=== PATIENT | male | born 1985 | race American Indian/Alaskan Native ===

== ENCOUNTER 2019-01-24 19:52 | Emergency (ER) | payer OTHER ==
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
[2019-01-25 01:34] VITALS: BP 115/83
== END 2019-01-25 01:34 | disposition home or self-care (01) ==
LOC: ED 19:52
DX: S16.1XXA Strain of muscle, fascia and tendon at neck level, initial encounter (principal); M25.511 Pain in right shoulder; Z91.011 Allergy to milk products; V89.2XXA Person injured in unspecified motor-vehicle accident, traffic, initial encounter; Y93.89 Activity, other specified; Y92.488 Other paved roadways as the place of occurrence of the external cause; Y99.8 Other external cause status
CPT/HCPCS: 99282

== ENCOUNTER 2020-07-09 12:28 | Emergency (ER) | payer SELFPAY ==
[2020-07-09 13:36] VITALS: BP 117/84
--- NOTE | 2020-07-09 14:38 | Emergency Department Report ---
ED General Adult HPI - General Chief complaint: Back Pain/Injury Stated complaint: TOOTH PAIN, BACK PAIN Time Seen by Provider: 07/09/20 14:32 Source: patient Mode of arrival: Ambulatory Limitations: No Limitations - History of Present Illness Initial comments: pt is a 34 yo male who presents to the ED with two chief complaints. he states he has had right upper dental pain that began intermittently over the last two months. states that he has had right sided facial swelling that began 4-5 days ago. he states the pain has been increasing. he denies any fever, no n/v/d, SOB, difficulty swallowing. states he has not seen a dentist in approximately 10 years. he states that he also has lower back pain that has been occurring intermittently over time. he states today he exacerbated his back while at work. he states he was on a ladder and reaching to grab something and felt his back lock up. he denies any fall or injury. he denies any LOC, numbness, weakness, or bowel or bladder incontinence. PMHx chronic back issues. no allergies to meds - Related Data Previous Rx's Medication Instructions Recorded Last Taken Type HYDROcodone/APAP 5-325 [[place] 1 each PO Q6HR PRN #14 tablet 04/09/14 Unknown Rx 5/325] Penicillin Vk [Veetids TAB] 500 mg PO QID #40 tablet 04/09/14 Unknown Rx Naproxen [Naprosyn] 500 mg PO TID PRN #20 tablet 01/25/19 Unknown Rx methOCARBAMOL [Robaxin TAB] 500 mg PO BID PRN #15 tablet 01/25/19 Unknown Rx Naproxen [EC-Naproxen] 500 mg PO BID PRN #14 fili. 07/09/20 Unknown Rx Penicillin Vk [Veetids TAB] 500 mg PO QID 7 Days #56 tablet 07/09/20 Unknown Rx methOCARBAMOL [Robaxin TAB] 500 mg PO BID PRN #14 tablet 07/09/20 Unknown Rx Allergies Allergy/AdvReac Type Severity Reaction Status Date / Time milk Allergy Unknown Verified 01/24/19 19:55 ED Review of Systems ROS: Stated complaint: TOOTH PAIN, BACK PAIN Other details as noted in HPI Comment: All other systems reviewed and negative ED Past Medical Hx - Past Medical History Previous Medical History?: No - Surgical History Past Surgical History?: No - Social History Smoking Status: Current Every Day Smoker Substance Use Type: Alcohol - Medications Home Medications: Home Medications Medication Instructions Recorded Confirmed Last Taken Type HYDROcodone/APAP 5-325 [[place] 1 each PO Q6HR PRN #14 tablet 04/09/14 Unknown Rx 5/325] Penicillin Vk [Veetids TAB] 500 mg PO QID #40 tablet 04/09/14 Unknown Rx Naproxen [Naprosyn] 500 mg PO TID PRN #20 tablet 01/25/19 Unknown Rx methOCARBAMOL [Robaxin TAB] 500 mg PO BID PRN #15 tablet 01/25/19 Unknown Rx Naproxen [EC-Naproxen] 500 mg PO BID PRN #14 tablet. 07/09/20 Unknown Rx Penicillin Vk [Veetids TAB] 500 mg PO QID 7 Days #56 tablet 07/09/20 Unknown Rx methOCARBAMOL [Robaxin TAB] 500 mg PO BID PRN #14 tablet 07/09/20 Unknown Rx ED Physical Exam - General Limitations: No Limitations General appearance: alert, in no apparent distress - Head Head exam: Present: atraumatic, normocephalic - Eye Eye exam: Present: normal appearance - ENT ENT exam: Present: normal orophraynx, mucous membranes moist, other (there is missing teeth present to the right upper back molar, there is associated induration and edema of the adjacent gumline, there is right sided facial edema, no erythema of the face, uvula is midline, no uvular edema or deviation, no trismus, no tongue elevation, no muffled voice ) - Neck Neck exam: Present: normal inspection, full ROM. Absent: tenderness - Respiratory Respiratory exam: Present: normal lung sounds bilaterally. Absent: respiratory distress, wheezes, rales, rhonchi, stridor, chest wall tenderness, accessory muscle use, decreased breath sounds, prolonged expiratory - Cardiovascular Cardiovascular Exam: Present: regular rate, normal rhythm, normal heart sounds. Absent: systolic murmur, diastolic murmur, rubs, gallop - Back Exam Back exam: Present: normal inspection, full ROM, paraspinal tenderness (bilateral paraspinal lumbar muscular ttp, no mildine C-spine, T-spine or L- spine ttp, no step offs, no deformities). Absent: vertebral tenderness - Neurological Exam Neurological exam: Present: alert, oriented X3, CN II-XII intact, normal gait. Absent: motor sensory deficit - Psychiatric Psychiatric exam: Present: normal affect, normal mood - Skin Skin exam: Present: warm, dry, intact ED Course Vital Signs 07/09/20 13:34 Temperature 97.9 F Pulse Rate 87 Respiratory 18 Rate Blood Pressure 117/84 [Left] O2 Sat by Pulse 98 Oximetry ED Medical Decision Making - Medical Decision Making pt is a 34 yo male who presents to the ED with two chief complaints. he states he has had right upper dental pain that began intermittently over the last two months. states that he has had right sided facial swelling that began 4-5 days ago. he states the pain has been increasing. he denies any fever, no n/v/d, SOB, difficulty swallowing. states he has not seen a dentist in approximately 10 years. he states that he also has lower back pain that has been occurring intermittently over time. he states today he exacerbated his back while at work. he states he was on a ladder and reaching to grab something and felt his back lock up. he denies any fall or injury. he denies any LOC, numbness, weakness, or bowel or bladder incontinence. PMHx chronic back issues. no allergies to meds VSS on exam: there is missing teeth present to the right upper back molar, there is associated induration and edema of the adjacent gumline, there is right sided facial edema, no erythema of the face, uvula is midline, no uvular edema or deviation, no trismus, no tongue elevation, no muffled voice, bilateral paraspinal lumbar muscular ttp, no mildine C-spine, T-spine or L-spine ttp, no step offs, no deformities, no focal neuro deficit. Examination appears consistent with dental carry and dental abscess. Examination also consistent with lumbar strain. Patient has no red flag warning signs of back pain. He has had no trauma, no unexplained weight loss, no neuro deficits, age is not greater than 50, no fever, no IV drug use, no steroid use, no history of cancer. Patient given prescription for penicillin VK, naproxen, Robaxin. Patient referred to orthopedic/spine, dentist, primary care. Advised patient Please take medication as prescribed. Do not drive or operate heavy machinery or work while taking muscle relaxer Robaxin. May use ice pack, hea ting pad, rest, Epson salt bath. Follow-up with your primary care doctor. Follow-up with a dentist. return to the ED for any new or worsening symptoms. Critical care attestation.: If time is entered above; I have spent that time in minutes in the direct care of this critically ill patient, excluding procedure time. ED Disposition Clinical Impression: Dental caries, Dental abscess Acute lumbar myofascial strain Qualifiers: Encounter type: initial encounter Qualified Code(s): S39.012A - Strain of muscle, fascia and tendon of lower back, initial encounter Disposition: TO HOME OR SELFCARE Is pt being admited?: No Does the pt Need Aspirin: No Condition: Stable Instructions: Muscle Strain (ED), Dental Abscess (ED), Dental Caries (ED) Additional Instructions: Please take medication as prescribed. Do not drive or operate heavy machinery or work while taking muscle relaxer Robaxin. May use ice pack, heating pad, rest, Epson salt bath. Follow-up with your primary care doctor. Follow-up with a dentist. Prescriptions: Naproxen [EC-Naproxen] 500 mg PO BID PRN #14 tablet. PRN Reason: pain methOCARBAMOL [Robaxin TAB] 500 mg PO BID PRN #14 tablet PRN Reason: pain Penicillin Vk [Veetids TAB] 500 mg PO QID 7 Days #56 tablet Referrals: [facility] [Outside] - 3-5 Days [facility] [Outside] - 3-5 Days BEN DONOHUE MD [Staff Physician] - 3-[address] [facility] [Provider Group] - 3-5 Days [facility], [LAB/CONTRACT] - 3-5 Days [facility] [Provider Group] - 3-5 Days NARCISA MONREAL II, MD [Staff Physician] - 3-5 Days Time of Disposition: 14:41 Print Language: KINYARWANDA
== END 2020-07-09 15:06 | disposition home or self-care (01) ==
LOC: ED 12:28
DX: S39.012A Strain of muscle, fascia and tendon of lower back, initial encounter (principal); K04.7 Periapical abscess without sinus; K02.9 Dental caries, unspecified; F17.200 Nicotine dependence, unspecified, uncomplicated; Z79.899 Other long term (current) drug therapy; Z91.011 Allergy to milk products; X58.XXXA Exposure to other specified factors, initial encounter; Y93.89 Activity, other specified; Y92.89 Other specified places as the place of occurrence of the external cause; Y99.8 Other external cause status
CPT/HCPCS: 99281

== ENCOUNTER 2021-06-14 16:00 | Emergency (ER) | payer SELFPAY ==
[2021-06-14 16:28] VITALS: BP 121/69
--- NOTE | 2021-06-14 16:37 | Emergency Department Report ---
ED ENT HPI - General Chief complaint: Dental/Oral Stated complaint: TOOTHACHE Time Seen by Provider: 06/14/21 16:35 Source: patient Mode of arrival: Ambulatory Limitations: No Limitations - History of Present Illness Initial comments: 35-year-old -[place] male who has been to the emergency room here 3 times for the same complaint right upper tooth ache. Patient states that he has a broken tooth and still there is a piece that he states has been suffering from this for years. Patient was referred to several dental clinics that see low income or no insurance patients. Patient is taking nothing for his pain. Patient denies any recent trauma to his jaw. Patient denies any fever chills no headache no change of vision. Denies any discharge coming from his mouth. MD complaint: tooth pain Onset/Timin -: year(s) Location: tooth # (14) Severity scale (0 -10): 8 Quality: aching, sharp Consistency: constant Improves with: none Worsens with: none Associated Symptoms: gum swelling - Related Data Previous Rx's Medication Instructions Recorded Last Taken Type HYDROcodone/APAP 5-325 [[place] 1 each PO Q6HR PRN #14 tablet 04/09/14 Unknown Rx 5/325] Penicillin Vk [Veetids TAB] 500 mg PO QID #40 tablet 04/09/14 Unknown Rx Naproxen [Naprosyn] 500 mg PO TID PRN #20 tablet 01/25/19 Unknown Rx methOCARBAMOL [Robaxin TAB] 500 mg PO BID PRN #15 tablet 01/25/19 Unknown Rx Naproxen [EC-Naproxen] 500 mg PO BID PRN #14 tablet. 07/09/20 Unknown Rx Penicillin Vk [Veetids TAB] 500 mg PO QID 7 Days #56 tablet 07/09/20 Unknown Rx methOCARBAMOL [Robaxin TAB] 500 mg PO BID PRN #14 tablet 07/09/20 Unknown Rx Clindamycin [Clindamycin CAP] 300 mg PO Q8H 10 Days #30 cap 06/14/21 Unknown Rx Allergies Allergy/AdvReac Type Severity Reaction Status Date / Time milk Allergy Unknown Verified 01/24/19 19:55 ED Dental HPI - General Chief complaint: Dental/Oral Stated complaint: TOOTHACHE Time Seen by Provider: 06/14/21 16:35 Source: patient Mode of arrival: Ambulatory Limitations: No Limitations - Related Data Previous Rx's Medication Instructions Recorded Last Taken Type HYDROcodone/APAP 5-325 [[place] 1 each PO Q6HR PRN #14 tablet 04/09/14 Unknown Rx 5/325] Penicillin Vk [Veetids TAB] 500 mg PO QID #40 tablet 04/09/14 Unknown Rx Naproxen [Naprosyn] 500 mg PO TID PRN #20 tablet 01/25/19 Unknown Rx methOCARBAMOL [Robaxin TAB] 500 mg PO BID PRN #15 tablet 01/25/19 Unknown Rx Naproxen [EC-Naproxen] 500 mg PO BID PRN #14 tablet. 07/09/20 Unknown Rx Penicillin Vk [Veetids TAB] 500 mg PO QID 7 Days #56 tablet 07/09/20 Unknown Rx methOCARBAMOL [Robaxin TAB] 500 mg PO BID PRN #14 tablet 07/09/20 Unknown Rx Clindamycin [Clindamycin CAP] 300 mg PO Q8H 10 Days #30 cap 06/14/21 Unknown Rx Allergies Allergy/AdvReac Type Severity Reaction Status Date / Time milk Allergy Unknown Verified 01/24/19 19:55 ED Review of Systems ROS: Stated complaint: TOOTHACHE Other details as noted in HPI Comment: All other systems reviewed and negative ED Past Medical Hx - Past Medical History Previous Medical History?: No - Surgical History Past Surgical History?: No - Social History Smoking Status: Current Every Day Smoker Substance Use Type: Alcohol - Medications Home Medications: Home Medications Medication Instructions Recorded Confirmed Last Taken Type HYDROcodone/APAP 5-325 [[place] 1 each PO Q6HR PRN #14 tablet 04/09/14 Unknown Rx 5/325] Penicillin Vk [Veetids TAB] 500 mg PO QID #40 tablet 04/09/14 Unknown Rx Naproxen [Naprosyn] 500 mg PO TID PRN #20 tablet 01/25/19 Unknown Rx methOCARBAMOL [Robaxin TAB] 500 mg PO BID PRN #15 tablet 01/25/19 Unknown Rx Naproxen [EC-Naproxen] 500 mg PO BID PRN #14 tablet. 07/09/20 Unknown Rx Penicillin Vk [Veetids TAB] 500 mg PO QID 7 Days #56 tablet 07/09/20 Unknown Rx methOCARBAMOL [Robaxin TAB] 500 mg PO BID PRN #14 tablet 07/09/20 Unknown Rx Clindamycin [Clindamycin CAP] 300 mg PO Q8H 10 Days #30 cap 06/14/21 Unknown Rx ED Physical Exam - General Limitations: No Limitations General appearance: alert, in no apparent distress - Head Head exam: Present: atraumatic, normocephalic - Eye Eye exam: Present: normal appearance - Expanded ENT Exam Expanded Teeth exam: Present: dental tenderness # (14), gingival enlargement - Neck Neck exam: Present: normal inspection, full ROM - Respiratory Respiratory exam: Absent: accessory muscle use - Cardiovascular Cardiovascular Exam: Present: regular rate - Neurological Exam Neurological exam: Present: alert, oriented X3, normal gait - Psychiatric Psychiatric exam: Present: normal affect, normal mood, flat affect - Skin Skin exam: Present: warm, dry, intact, normal color. Absent: rash ED Course Vital Signs 06/14/21 16:26 Temperature 98.6 F Pulse Rate 84 Respiratory 17 Rate Blood Pressure 121/69 O2 Sat by Pulse 98 Oximetry ED Medical Decision Making - Medical Decision Making 35-year-old -[place] male who has been to the emergency room here 3 times for the same complaint right upper tooth ache. Patient states that he has a broken tooth and still there is a piece that he states has been suffering from this for years. Patient was referred to several dental clinics that see low income or no insurance patients. Patient is taking nothing for his pain. Patient denies any recent trauma to his jaw. Patient denies any fever chills no headache no change of vision. Denies any discharge coming from his mouth. Clindamycin 300 mg 3 times daily x10 days patient to take [id number] ibupr ofen or Tylenol for pain Critical care attestation.: If time is entered above; I have spent that time in minutes in the direct care of this critically ill patient, excluding procedure time. ED Disposition Clinical Impression: Dental abscess Disposition: HOME / SELF CARE / HOMELESS Is pt being admited?: No Does the pt Need Aspirin: No Condition: Stable Instructions: Dental Abscess, [id number] Additional Instructions: You must follow-up with a dentist as were not able to continue treating you for dental abscess as you will develop a resistance to antibiotics. Is important that you take Tylenol or ibuprofen and to follow-up at a community dentist. Prescriptions: Clindamycin [Clindamycin CAP] 300 mg PO Q8H 10 Days #30 cap Referrals: [facility] [Outside] - 3-5 Days [facility] [Outside] - 3-5 Days [facility] [Outside] - 3-5 Days
== END 2021-06-14 17:21 | disposition home or self-care (01) ==
LOC: ED 16:00
DX: K04.6 Periapical abscess with sinus (principal); F17.200 Nicotine dependence, unspecified, uncomplicated
CPT/HCPCS: 99281